=== PATIENT | male | born 1955 | race Caucasian/White ===

== ENCOUNTER 2022-09-18 14:12 | Emergency (ER) | payer MEDICARE ==
[~2022-09-18] VITALS: Ht 182.9 cm; Wt 107.9 kg
[2022-09-18] MEDS ORDERED: NITROGLYCERIN 0.4 MG SUBL TABLET As Ordered ONE (14:31)
[2022-09-18] MEDS ORDERED: HEPARIN SOD (PORCINE) 5000UNITS/ML 1ML VIAL/SYRINGE IV ONE (14:35)
[2022-09-18] MEDS ORDERED: NITROGLYCERIN 0.4 MG SUBL TABLET SL PRN (14:35)
[2022-09-18] MEDS ORDERED: TENECTEPLASE 50 MG KIT (TNKase) (J3101 PER 1MG) IV ONE (14:35)
[2022-09-18] MEDS ORDERED: HEPARIN DRIP 25,000 UNITS in IV 1 EA IV SCH (14:35)
[2022-09-18 14:40] VITALS: BP 170/100
[2022-09-18] MEDS ORDERED: CLOP75TA2 PO (14:45)
[2022-09-18] MEDS ORDERED: HYDR-3490 PO (14:45)
[2022-09-18] MEDS ORDERED: LISI2.5T9 PO (14:45)
[2022-09-18] MEDS ORDERED: METO25TA4 PO (14:45)
[2022-09-18] MEDS ORDERED: ATOR80TA59 PO (14:45)
[2022-09-18] MEDS ORDERED: ASPI81CH33 PO (14:46)
[2022-09-18] MEDS ORDERED: TENECTEPLASE 50 MG KIT (TNKase) (J3101 PER 1MG) As Ordered ONE (14:51)
[2022-09-18 14:59] LABS: BASO % 0.5 % (0.0-1.0); EOS # 0.1 10^3/uL (0.0-0.5); EOS % 0.9 % (0.0-3.0); HEMOGLOBIN 13.4 g/dl (13.5-17.5); LYMPH # 1.7 10^3/uL (1.5-5.0); LYMPH % 23.1 % (24.0-44.0); MEAN CORPUSCULAR HEMOGLOBIN 32.6 pg (27.0-33.0); MEAN CORPUSCULAR HGB CONC 32.7 g/dl (32.0-36.5); MEAN CORPUSCULAR VOLUME 99.8 fl (80.0-96.0); MONO # 0.7 10^3/uL (0.0-0.8); MONO % 9.8 % (2.0-8.0); NEUTROPHILS # 4.9 10^3/uL (1.5-8.5); NEUTROPHILS % 65.3 % (36.0-66.0); PLATELET COUNT, AUTOMATED 260 10^3/uL (150-450); RED BLOOD COUNT 4.11 10^6/uL (4.30-6.10); WHITE BLOOD COUNT 7.5 10^3/uL (4.0-10.0)
[2022-09-18] MEDS ORDERED: ATROPINE SULF 1MG/10ML SYRINGE (J0461) As Ordered ONE (15:26)
[2022-09-18] MEDS ORDERED: ATROPINE SULF 0.4 MG/ML 1ML VIAL (J0461) IV STA (15:27)
[2022-09-18 15:35] LABS: RSV AMPLIFICATION NEGATIVE (NEGATIVE)
[2022-09-18 15:40] VITALS: BP 138/67
[2022-09-18 15:42] LABS: BLOOD UREA NITROGEN 20 MG/DL (9-23); CALCIUM LEVEL 9.2 MG/DL (8.3-10.6); CARBON DIOXIDE LEVEL 23 MMOL/L (20-31); CHLORIDE LEVEL 102 MMOL/L (98-107); CK-MB VALUE MASS 5.4 NG/ML (<3.6); CPK CREATINE PHOSPHOKINASE 252 U/L (46-171); CREATININE FOR GFR 0.89 MG/DL (0.70-1.30); GLOMERULAR FILTRATION RATE > 60.0 (>49); GLUCOSE, FASTING 161 MG/DL (74-106); MB/CK RELATIVE INDEX 2.14 (< OR =4); SODIUM LEVEL 135 MMOL/L (136-145)
== END 2022-09-18 16:32 | disposition short-term general hospital (02) ==
LOC: EDBD 14:12 → M ED 14:43
DX: I21.19 ST elevation (STEMI) myocardial infarction involving other coronary artery of inferior wall (principal); I51.7 Cardiomegaly; I25.10 Atherosclerotic heart disease of native coronary artery without angina pectoris; I25.2 Old myocardial infarction; I10 Essential (primary) hypertension; E78.5 Hyperlipidemia, unspecified; J44.9 Chronic obstructive pulmonary disease, unspecified; Z95.5 Presence of coronary angioplasty implant and graft; F17.200 Nicotine dependence, unspecified, uncomplicated; Z82.49 Family history of ischemic heart disease and other diseases of the circulatory system
CPT/HCPCS: 71045; 80048; 82550; 82553; 84484; 85025; 87631; 93005; 93041; 94760; 96365; 96375; 99285; J1644; J3101

== ENCOUNTER 2024-06-18 08:10 | Emergency (ER) | payer MEDICARE ==
[~2024-06-18] VITALS: Ht 182.9 cm; Wt 102.9 kg
[~2024-06-18 08:10] MED LIST: ASPI81CH33 PO; ATOR80TA59 PO; CLOP75TA2 PO; HYDR-3490 PO; LISI2.5T9 PO; METO25TA4 PO
[2024-06-18 08:51] LABS: BASO # 0.1 10^3/uL (0.0-0.2); BASO % 0.8 % (0.0-1.0); EOS # 0.2 10^3/uL (0.0-0.5); EOS % 3.3 % (0.0-3.0); HEMATOCRIT 39.3 % (42.0-52.0); HEMOGLOBIN 13.1 g/dl (13.5-17.5); LYMPH # 1.1 10^3/uL (1.5-5.0); LYMPH % 15.3 % (24.0-44.0); MEAN CORPUSCULAR HGB CONC 33.3 g/dl (32.0-36.5); MEAN CORPUSCULAR VOLUME 105.1 fl (80.0-96.0); MONO # 0.6 10^3/uL (0.0-0.8); MONO % 7.8 % (2.0-8.0); NEUTROPHILS # 5.1 10^3/uL (1.5-8.5); NEUTROPHILS % 72.5 % (36.0-66.0); PLATELET COUNT, AUTOMATED 175 10^3/uL (150-450); RED BLOOD COUNT 3.74 10^6/uL (4.30-6.10); WHITE BLOOD COUNT 7.1 10^3/uL (4.0-10.0)
[2024-06-18 08:54] LABS: ABG BASE EXCESS -2.1 (-2.0-2.0); ABG HCO3 21.7 MMOL/L (22.0-26.0); ABG O2 SATURATION 95.7 % (95.0-99.0); ABG PARTIAL PRESSURE CO2 34.2 mmHg (35.0-45.0); ABG PARTIAL PRESSURE O2 79.4 mmHg (75.0-100.0); ABG STANDARD HCO3 22.7 MMOL/L. (22.0-26.0); ABG TOTAL CO2 22.7 MMOL/L (23.0-31.0)
[2024-06-18] MEDS ORDERED: MOME13HF7 INH (08:55)
[2024-06-18] MEDS ORDERED: AMLO1TAB24 PO (08:55)
[2024-06-18] MEDS ORDERED: VALS80TA PO (08:55)
[2024-06-18] MEDS ORDERED: PANT40TA29 PO (08:55)
[2024-06-18] MEDS ORDERED: VALS1TAB66 PO (08:55)
[2024-06-18] MEDS ORDERED: LABE200T5 PO (08:55)
[2024-06-18] MEDS ORDERED: FURO20TA2 PO (08:55)
[2024-06-18] MEDS: FUROSEMIDE 40MG/4ML VIAL IV ONE (09:02)
[2024-06-18] MEDS: MORPHINE 2 MG/ML 1ML VIAL IV ONE (09:03)
[2024-06-18 09:25] LABS: CK-MB VALUE MASS 6.5 NG/ML (<3.6)
[2024-06-18 09:27] LABS: ALBUMIN 3.7 G/DL (3.2-5.2); ALKALINE PHOSPHATASE 97 U/L (46-116); ALT/SGPT 81 U/L (7.0-40); AST/SGOT 61 U/L (<34); BILIRUBIN,DIRECT 0.2 MG/DL (<0.4); BILIRUBIN,TOTAL 0.7 MG/DL (0.3-1.2); BLOOD UREA NITROGEN 20 MG/DL (9-23); CALCIUM LEVEL 8.8 MG/DL (8.3-10.6); CARBON DIOXIDE LEVEL 23 MMOL/L (20-31); CHLORIDE LEVEL 109 MMOL/L (98-107); CREATININE FOR GFR 0.79 MG/DL (0.70-1.30); GLOMERULAR FILTRATION RATE > 60.0 (>49); GLUCOSE, FASTING 172 MG/DL (74-106); POTASSIUM SERUM 4.4 MMOL/L (3.5-5.1); SODIUM LEVEL 138 MMOL/L (136-145)
[2024-06-18 09:29] LABS: THYROID STIMULATING HORMONE 1.244 uIU/ML (0.55-4.78)
[2024-06-18 09:31] LABS: CPK CREATINE PHOSPHOKINASE 246 U/L (46-171); MB/CK RELATIVE INDEX 2.64 (< OR =4)
[2024-06-18] MEDS ORDERED: ISOVUE-370 76% 100ML VIAL As Ordered ONE (09:31)
[2024-06-18 09:50] LABS: CK-MB VALUE MASS 6.9 NG/ML (<3.6)
[2024-06-18 09:53] LABS: MB/CK RELATIVE INDEX 2.83 (< OR =4)
[2024-06-18] MEDS ORDERED: NITROGLYCERIN 0.4MG SUBL TABLET As Ordered ONE (09:59)
[2024-06-18] MEDS: NITROGLYCERIN 0.4MG SUBL TABLET SL PRN (10:01)
[2024-06-18] MEDS: TENECTEPLASE 50 MG/10 ML VIAL IV STA (10:09)
[2024-06-18] MEDS: ASPIRIN 81MG CHEW TABLET PO ONE (10:14)
[2024-06-18] MEDS: HEPARIN SOD (PORCINE) 5000UNITS/ML 1ML VIAL/SYRINGE IV ONE (10:16)
[2024-06-18] MEDS: HEPARIN DRIP 25,000 UNITS in IV 1 EA IV SCH (10:21)
[2024-06-18 10:25] VITALS: BP 156/89
[2024-06-18] MEDS: NITROGLYCERIN 2% OINT 1 GM *U/D* PKT TOP ONE (10:25)
[2024-06-18 10:33] LABS: INR 1.01; PARTIAL THROMBOPLASTIN TIME 27.1 SECONDS (24.8-34.2)
[2024-06-18 10:48] VITALS: BP 174/99; TEMP 97.4; O2SAT 96
== END 2024-06-18 11:06 | disposition short-term general hospital (02) ==
LOC: M ED 08:10 → EDBD 08:10 → M ED 11:06
DX: I21.3 ST elevation (STEMI) myocardial infarction of unspecified site (principal); J81.0 Acute pulmonary edema; I11.0 Hypertensive heart disease with heart failure; I25.10 Atherosclerotic heart disease of native coronary artery without angina pectoris; I25.2 Old myocardial infarction; J44.9 Chronic obstructive pulmonary disease, unspecified; Z95.5 Presence of coronary angioplasty implant and graft; Z95.1 Presence of aortocoronary bypass graft; Z87.891 Personal history of nicotine dependence; Z79.82 Long term (current) use of aspirin; Z79.899 Other long term (current) drug therapy
CPT/HCPCS: 36600; 71045; 71275; 80048; 80076; 82550; 82553; 82803; 83605; 83880; 84443; 84484; 85025; 85610; 85730; 87040; 87486; 87581; 87633; 87798; 93005; 93041; 94760; 96374; 96375; 99285; J1940; J3101; Q9967

== ENCOUNTER 2025-10-15 17:01 | Observation (INO) | payer MEDICARE ==
[~2025-10-15] VITALS: Ht 182.9 cm; Wt 103.5 kg
[~2025-10-15 17:01] MED LIST changes: +AMLO1TAB24 PO; +FURO20TA2 PO; +LABE200T86 PO; +MOME13HF7 INH; +PANT40TA29 PO; +VALS1TAB66 PO; +VALS80TA PO
[2025-10-15 17:23] LABS: VENOUS BASE EXCESS 0.2 (-2.0-2.0); VENOUS HCO3 26.6 MMOL/L (23.0-27.0); VENOUS O2 SATURATION 55.9 % (60.0-80.0); VENOUS PARTIAL PRESSURE CO2 49.2 mmHg (38.0-50.0); VENOUS PARTIAL PRESSURE O2 31.4 mmHg (30.0-50.0); VENOUS PH 7.350 UNITS (7.330-7.430); VENOUS STANDARD HCO3 23.7 MMOL/L; VENOUS TOTAL CO2 28.1 MMOL/L (24.0-28.0)
[2025-10-15 17:33] LABS: BASO # 0.0 10^3/uL (0.0-0.2); BASO % 0.6 % (0.0-1.0); EOS # 0.2 10^3/uL (0.0-0.5); EOS % 2.7 % (0.0-3.0); LYMPH # 1.6 10^3/uL (1.5-5.0); LYMPH % 22.6 % (24.0-44.0); MONO # 0.7 10^3/uL (0.0-0.8); MONO % 9.9 % (2.0-8.0); NEUTROPHILS # 4.4 10^3/uL (1.5-8.5); NEUTROPHILS % 63.8 % (36.0-66.0); PLATELET COUNT, AUTOMATED 206 10^3/uL (150-450)
[2025-10-15] MEDS: FUROSEMIDE 40 MG/4 ML VIAL IV ONE (17:41)
[2025-10-15] MEDS ORDERED: LIVA4TAB PO (17:47)
[2025-10-15] MEDS ORDERED: ALBU2.5V10 INH (17:47)
[2025-10-15] MEDS ORDERED: DOXY100T PO (17:47)
[2025-10-15] MEDS ORDERED: LABE20TAB PO (17:47)
[2025-10-15] MEDS ORDERED: CLON-412 PO (17:47)
[2025-10-15] MEDS ORDERED: SPIR-10 PO (17:47)
[2025-10-15] MEDS ORDERED: ISOVUE-370 76% 100 ML VIAL As Ordered ONE (17:49)
[2025-10-15] MEDS ORDERED: FARX1TAB3 PO (17:53)
[2025-10-15 17:54] LABS: INR 0.88
[2025-10-15 17:57] LABS: ALT/SGPT 56.0 U/L (7.0-40); AST/SGOT 58.0 U/L (<34); CALCIUM LEVEL 9.2 MG/DL (8.3-10.6); CARBON DIOXIDE LEVEL 27.0 MMOL/L (20-31); CHLORIDE LEVEL 101.0 MMOL/L (98-107); CREATININE FOR GFR 1.05 MG/DL (0.70-1.30); GLOMERULAR FILTRATION RATE 77.3 (>49); POTASSIUM SERUM 5.0 MMOL/L (3.5-5.1); SODIUM LEVEL 136.0 MMOL/L (136-145)
[2025-10-15] MEDS ORDERED: EZET10TA57 PO (17:59)
[2025-10-15] MEDS ORDERED: ACET-897 PO (18:00)
[2025-10-15] MEDS ORDERED: SYMB16INH INH (18:01)
[2025-10-15] MEDS ORDERED: HOME MED LIST COMPLETE! XX SCH (18:05)
[2025-10-15 20:30] VITALS: BP 135/84
[2025-10-15] MEDS ORDERED: ACETAMINOPHEN 325 MG TAB PO PRN (20:30)
[2025-10-15] MEDS ORDERED: MOM 30 ML SUSPENSION UDC PO PRN (20:30)
[2025-10-15] MEDS: predniSONE 20 MG TAB PO ONE (21:21)
[2025-10-15] MEDS: LABETALOL 200 MG TAB PO SCH (21:22)
[2025-10-15] MEDS: IPRATROPIUM 0.5 MG/ALBUTEROL 2.5 MG INH SOL UD 3 ML NEB PRN (21:26)
[2025-10-15] MEDS: DOXYCYCLINE HYCLATE 100 MG TABLET PO SCH (21:30)
[2025-10-15] MEDS ORDERED: ALBUTEROL SULFATE 2.5 MG/0.5 ML INH CONCENTRATE NEB SOLN NEB PRN (21:55)
[2025-10-16] MEDS: IPRATROPIUM 0.5 MG/ALBUTEROL 2.5 MG INH SOL UD 3 ML NEB SCH
[2025-10-16] MEDS: BENZONATATE 100 MG CAPSULE PO PRN (00:16)
[2025-10-16 04:17] VITALS: BP 154/75; O2SAT 94
[2025-10-16] MEDS: HEPARIN SOD 5000 UNITS/ML 1 ML VIAL/SYRINGE SC SCH ×2 (05:18→08:38)
[2025-10-16 06:54] LABS: PLATELET COUNT, AUTOMATED 208 10^3/uL (150-450)
[2025-10-16 07:17] LABS: CALCIUM LEVEL 9.4 MG/DL (8.3-10.6); CARBON DIOXIDE LEVEL 25.0 MMOL/L (20-31); CHLORIDE LEVEL 99.0 MMOL/L (98-107); CREATININE FOR GFR 1.14 MG/DL (0.70-1.30); GLOMERULAR FILTRATION RATE 70.1 (>49); POTASSIUM SERUM 5.2 MMOL/L (3.5-5.1); SODIUM LEVEL 136.0 MMOL/L (136-145)
[2025-10-16] MEDS: SYMBICORT 160/4.5MCG INHALER 6GM INH SCH (07:47)
[2025-10-16] MEDS ORDERED: ALBUTEROL SULFATE 2.5 MG/0.5 ML INH CONCENTRATE NEB SOLN NEB PRN (07:50)
[2025-10-16] MEDS: PANTOPRAZOLE 40MG TAB PO SCH (08:36)
[2025-10-16] MEDS: DAPAGLIFLOZIN PROPANEDIOL 10 MG TABLET PO SCH (08:36)
[2025-10-16] MEDS: predniSONE 20 MG TAB PO SCH (08:37)
[2025-10-16] MEDS: FUROSEMIDE 40 MG/4 ML VIAL IV SCH (08:37)
[2025-10-16] MEDS ORDERED: EZETIMIBE 10 MG TABLET PO SCH (09:00)
[2025-10-16] MEDS ORDERED: amLODIPine 5 MG TAB PO SCH (09:00)
[2025-10-16 11:54] VITALS: BP 136/70; TEMP 98.5; O2SAT 91
[2025-10-16] MEDS: ASPIRIN 81 MG CHEWABLE TABLET PO SCH (12:13)
[2025-10-16] MEDS: EZETIMIBE 10 MG TABLET PO SCH (12:13)
[2025-10-16] MEDS: CLOPIDOGREL 75 MG TAB PO SCH (12:13)
[2025-10-16 20:32] VITALS: BP 131/79; TEMP 98.1; O2SAT 94
[2025-10-17 03:24] VITALS: BP 136/76; TEMP 98; O2SAT 92
[2025-10-17 05:54] LABS: BASO # 0.0 10^3/uL (0.0-0.2); BASO % 0.2 % (0.0-1.0); EOS # 0.0 10^3/uL (0.0-0.5); EOS % 0.4 % (0.0-3.0); LYMPH # 2.4 10^3/uL (1.5-5.0); LYMPH % 24.4 % (24.0-44.0); MONO # 1.0 10^3/uL (0.0-0.8); MONO % 9.8 % (2.0-8.0); NEUTROPHILS # 6.4 10^3/uL (1.5-8.5); NEUTROPHILS % 64.8 % (36.0-66.0); PLATELET COUNT, AUTOMATED 201 10^3/uL (150-450)
[2025-10-17 06:43] LABS: CALCIUM LEVEL 9.3 MG/DL (8.3-10.6); CARBON DIOXIDE LEVEL 28.0 MMOL/L (20-31); CHLORIDE LEVEL 102.0 MMOL/L (98-107); CREATININE FOR GFR 1.17 MG/DL (0.70-1.30); GLOMERULAR FILTRATION RATE 67.9 (>49); POTASSIUM SERUM 4.2 MMOL/L (3.5-5.1); SODIUM LEVEL 139.0 MMOL/L (136-145)
[2025-10-17 09:00] VITALS: BP 126/61
[2025-10-17] MEDS: guaiFENesin ER TABLET 600 MG TAB PO SCH (11:33)
[2025-10-17 11:54] VITALS: BP 154/82; TEMP 98.3; O2SAT 94
[2025-10-17] MEDS ORDERED: FURO40TA2 PO ×2 (14:24→15:28)
[2025-10-17] MEDS ORDERED: PRED10TA2 PO (14:24)
[2025-10-17] MEDS ORDERED: MUCI600T31 PO (14:24)
[2025-10-18] MEDS ORDERED: FUROSEMIDE 40 MG TAB PO SCH (09:00)
== END 2025-10-17 17:46 | disposition home health service (06) ==
LOC: M ED 17:01 → EDBD 17:01 → M ED INP 17:02 → M MSPAV 10-16 11:51
PROVIDERS: ADMIT Student in an Organized Health Care Education/Training Program; ATTEND Student in an Organized Health Care Education/Training Program
DX: J96.01 Acute respiratory failure with hypoxia (principal); I25.2 Old myocardial infarction; I25.10 Atherosclerotic heart disease of native coronary artery without angina pectoris; Z95.5 Presence of coronary angioplasty implant and graft; I50.33 Acute on chronic diastolic (congestive) heart failure; I11.0 Hypertensive heart disease with heart failure; E78.5 Hyperlipidemia, unspecified; E66.9 Obesity, unspecified; J44.1 Chronic obstructive pulmonary disease with (acute) exacerbation; Z90.49 Acquired absence of other specified parts of digestive tract; B34.8 Other viral infections of unspecified site; Z87.891 Personal history of nicotine dependence; Z79.51 Long term (current) use of inhaled steroids; Z79.82 Long term (current) use of aspirin; Z79.2 Long term (current) use of antibiotics; Z79.899 Other long term (current) drug therapy
CPT/HCPCS: 36415; 71045; 71275; 80047; 80048; 80076; 82803; 83605; 83880; 84145; 84443; 85025; 85027; 85610; 87040; 87486; 87581; 87633; 87798; 93005; 93041; 93306; 94640; 94664; 94760; 96372; 96374; 99285; G0378; J1938; J7512; Q9967